=== PATIENT | male | born 1980 | race Caucasian/White ===

== ENCOUNTER 2016-12-15 01:03 | Emergency (ER) | payer SELFPAY ==
[~2016-12-15] VITALS: Ht 177.8 cm; Wt 84.0 kg
[2016-12-15 01:12] VITALS: BP 125/97
[2016-12-15] MEDS ORDERED: ED- CEPHALEXIN 500 MG (KEFLEX) 6 CAPSULES/BTL PO ONE (01:15)
[2016-12-15] MEDS ORDERED: ED- HYDROcodone/ACETAMINOPHEN 5MG/325MG (NORCO) 6 TABLETS/BTL PO ONE (01:15)
== END 2016-12-15 01:30 | disposition home or self-care (01) ==
LOC: EDUNIT# 01:03 → ED 01:07
DX: K02.9 Dental caries, unspecified (principal)
CPT/HCPCS: 99282; 99283

== ENCOUNTER 2017-02-01 03:18 | Emergency (ER) | payer SELFPAY ==
[~2017-02-01] VITALS: Ht 177.8 cm; Wt 84.0 kg
[~2017-02-01 03:18] MED LIST: ACET-93 PO; CEPH-331 PO; HYDR-3702 PO; TRM50T PO
[2017-02-01] MEDS ORDERED: AMOXICILLIN 500 MG (AMOXIL) CAPSULE PO ONE (03:35)
[2017-02-01] MEDS ORDERED: KETOROLAC 60 MG/2 ML (TORADOL) VIAL IM ONE (03:35)
[2017-02-01] MEDS ORDERED: HYDROcodone/APAP 10 MG/325 MG (NORCO) TAB PO ONE (03:35)
[2017-02-01] MEDS ORDERED: AMOX500C5 PO (03:47)
[2017-02-01] MEDS ORDERED: IBP800T PO (03:47)
[2017-02-01] MEDS ORDERED: HYDROcodone/APAP 5 MG/325 MG (NORCO) TAB PO ONE (03:50)
[2017-02-01] MEDS ORDERED: ED- HYDROcodone/ACETAMINOPHEN 5MG/325MG (NORCO) 6 TABLETS/BTL PO ONE (03:50)
[2017-02-01 04:01] VITALS: BP 142/88
== END 2017-02-01 03:57 | disposition home or self-care (01) ==
LOC: ED 03:25
DX: K08.89 Other specified disorders of teeth and supporting structures (principal); K05.10 Chronic gingivitis, plaque induced
CPT/HCPCS: 96372; 99282; J1885; 99283